=== PATIENT | female | born 1965 | race Caucasian/White ===

== ENCOUNTER 2022-07-04 13:28 | Inpatient (IN) | payer MEDICARE ==
[2022-07-04] MEDS ORDERED: Dextrose 50% Abboject 50 ML SYRINGE SLOW IVP PRN (17:16)
[2022-07-04] MEDS ORDERED: Senokot S 8.6-50 MG TAB PO PRN (17:17)
[2022-07-04] MEDS ORDERED: Acetaminophen 325 MG TAB PO PRN ×2 (17:17→20:15)
[2022-07-04] MEDS ORDERED: Ondansetron ODT 4 MG TAB SL PRN (17:17)
[2022-07-04] MEDS ORDERED: Bisacodyl 5 MG TAB PO PRN (17:17)
[2022-07-04] MEDS ORDERED: HumaLOG 300 UNITS/3 ML VIAL SC PRN (17:18)
[2022-07-04] MEDS ORDERED: Non-Formulary Item 1 EACH (Acetaminophen [Tylenol] 325 MG Capsule) PO PRN (19:58)
[2022-07-04 20:18] LABS: SARS-CoV-2 NAA Rapid Test Not Detected (NotDetected)
[2022-07-04] MEDS: Heparin 5,000 UNITS/ML VIAL SC SCH (20:37)
[2022-07-04] MEDS: Lantus 1000 UNITS/10 ML VIAL SC SCH (20:38)
[2022-07-04] MEDS: Famotidine 20 MG TAB PO SCH (20:40)
[2022-07-04] MEDS: Furosemide 40 MG TAB PO SCH (20:40)
[2022-07-05 06:19] LABS: ALT (SGPT) 18 U/L (8-55); AST (SGOT) 12 U/L (5-34); Albumin 3.6 g/dL (3.5-5.0); Alkaline Phosphatase 105 U/L (40-110); Anion Gap 17 mmol/L (10-20); BUN (Urea Nitrogen) 25 mg/dL (9.8-20.1); Bilirubin, Total 0.3 mg/dL (0.2-1.2); Calc. Creatinine Clearance 17 mL/min (70-130); Calcium 9.2 mg/dL (7.8-10.44); Carbon Dioxide 22 mmol/L (22-29); Chloride 97 mmol/L (98-107); Estimated GFR 8; Glucose 101 mg/dL (70-105); Potassium 4.8 mmol/L (3.5-5.1); Protein, Total 7.6 g/dL (6.0-8.3); Sodium 131 mmol/L (136-145)
[2022-07-05 06:35] LABS: Thyroid Stimulating Hormone 0.2975 uIU/mL (0.35-4.94)
[2022-07-05 07:16] LABS: #Basophils 0.1 thou/uL (0.0-0.2); #Eosinphils 0.5 thou/uL (0.0-0.7); #Lymphocytes 3.2 thou/uL (1.20-3.40); #Monocytes 0.5 thou/uL (0.11-0.59); #Neutrophils 6.1 thou/uL (1.40-6.50); %Basophils 1.4 % (0.0-1.0); %Eosinophils 5.1 % (0.0-10.0); %Lymphocytes 30.7 % (21.0-51.0); %Monocytes 5.1 % (0.0-10.0); %Neutrophils 57.7 % (42.0-75.0); Hemoglobin 9.4 g/dL (12.0-16.0); MDiff Complete? YES; Macrocytosis SLIGHT = 6-15 cells (100X) (0-5/hpf); Mean Corpuscular HGB CONC 32.1 g/dL (32.0-36.0); Mean Corpuscular Hemoglobin 32.8 pg (27.0-31.0); Mean Platelet Volume 6.1 fL (7.4-10.4); Platelet Count 311 10x3/uL (130-400); Platelet Morphology Comment Appears Adequate; RBC Distribution Width 20.1 % (11.5-14.5); Red Blood Cell (RBC) Count 2.86 mill/uL (4.20-5.40); White Blood Cell (WBC) Count 10.5 10x3/uL (4.8-10.8)
[2022-07-05] MEDS: Sevelamer Carbonate 800 MG TAB PO SCH ×3 (08:57→16:55)
[2022-07-05] MEDS: Aspirin 81 mg Enteric Coated Tablet PO SCH (08:58)
[2022-07-05] MEDS: NIFEdipine XL 30 MG TAB PO SCH (08:59)
[2022-07-05] MEDS: Calcitriol 0.25 MCG CAP PO SCH (09:00)
[2022-07-05] MEDS: Lantus 1000 UNITS/10 ML VIAL SC SCH ×2 (09:01→21:32)
[2022-07-05] MEDS: Heparin 5,000 UNITS/ML VIAL SC SCH ×3 (09:03→21:31)
[2022-07-05 11:31] LABS: Free T4 (Free Thyroxine) 0.63 ng/dL (0.70-1.48)
[2022-07-05] MEDS: ZINC PO SCH (13:39)
[2022-07-05] MEDS: VIT B COMPLX C PO SCH (13:39)
[2022-07-05] MEDS: FOLIC ACID PO SCH (13:39)
[2022-07-05] MEDS: HumaLOG 300 UNITS/3 ML VIAL SC PRN (17:42)
[2022-07-05] MEDS: Famotidine 20 MG TAB PO SCH (21:30)
[2022-07-05] MEDS: Furosemide 40 MG TAB PO SCH (21:31)
[2022-07-06] MEDS: Sevelamer Carbonate 800 MG TAB PO SCH ×3 (08:04→17:30)
[2022-07-06] MEDS: Lantus 1000 UNITS/10 ML VIAL SC SCH ×2 (08:05→20:46)
[2022-07-06] MEDS: Aspirin 81 mg Enteric Coated Tablet PO SCH (08:05)
[2022-07-06] MEDS: Calcitriol 0.25 MCG CAP PO SCH (08:05)
[2022-07-06] MEDS: Heparin 5,000 UNITS/ML VIAL SC SCH ×3 (09:56→20:49)
[2022-07-06] MEDS: ZINC PO SCH (10:23)
[2022-07-06] MEDS: VIT B COMPLX C PO SCH (10:23)
[2022-07-06] MEDS: FOLIC ACID PO SCH (10:23)
[2022-07-06] MEDS: [UNRECOGNIZED DRUG - OTHER] SC SCH (10:24)
[2022-07-06] MEDS: NIFEdipine XL 30 MG TAB PO SCH (10:24)
[2022-07-06] MEDS ORDERED: Acetaminophen 325 MG TAB PO PRN (16:15)
[2022-07-06] MEDS: Famotidine 20 MG TAB PO SCH (20:43)
[2022-07-06] MEDS: Furosemide 40 MG TAB PO SCH (20:44)
[2022-07-07] MEDS: Calcitriol 0.25 MCG CAP PO SCH (07:57)
[2022-07-07] MEDS: Sevelamer Carbonate 800 MG TAB PO SCH ×3 (07:57→17:02)
[2022-07-07] MEDS: Aspirin 81 mg Enteric Coated Tablet PO SCH (07:57)
[2022-07-07] MEDS: NIFEdipine XL 30 MG TAB PO SCH (07:57)
[2022-07-07] MEDS: VIT B COMPLX C PO SCH (07:58)
[2022-07-07] MEDS: FOLIC ACID PO SCH (07:58)
[2022-07-07] MEDS: ZINC PO SCH (07:58)
[2022-07-07] MEDS: Lantus 1000 UNITS/10 ML VIAL SC SCH ×2 (07:58→21:17)
[2022-07-07] MEDS: Heparin 5,000 UNITS/ML VIAL SC SCH ×3 (08:32→21:18)
[2022-07-07] MEDS: Furosemide 40 MG TAB PO SCH (21:16)
[2022-07-07] MEDS: Famotidine 20 MG TAB PO SCH (21:18)
[2022-07-08 06:35] VITALS: BMI 31.6
[2022-07-08] MEDS: Aspirin 81 mg Enteric Coated Tablet PO SCH (07:45)
[2022-07-08] MEDS: NIFEdipine XL 30 MG TAB PO SCH (07:45)
[2022-07-08] MEDS: Calcitriol 0.25 MCG CAP PO SCH (07:45)
[2022-07-08] MEDS: Sevelamer Carbonate 800 MG TAB PO SCH ×3 (07:45→16:55)
[2022-07-08] MEDS: Lantus 1000 UNITS/10 ML VIAL SC SCH ×2 (07:48→21:39)
[2022-07-08] MEDS: ZINC PO SCH (07:48)
[2022-07-08] MEDS: Heparin 5,000 UNITS/ML VIAL SC SCH ×3 (07:48→21:43)
[2022-07-08] MEDS: FOLIC ACID PO SCH (07:48)
[2022-07-08] MEDS: VIT B COMPLX C PO SCH (07:48)
[2022-07-08 12:01] LABS: #Basophils 0.2 thou/uL (0.0-0.2); #Eosinphils 0.7 thou/uL (0.0-0.7); #Lymphocytes 2.4 thou/uL (1.20-3.40); #Monocytes 0.6 thou/uL (0.11-0.59); #Neutrophils 4.5 thou/uL (1.40-6.50); %Basophils 2.1 % (0.0-1.0); %Eosinophils 8.7 % (0.0-10.0); %Lymphocytes 28.8 % (21.0-51.0); %Monocytes 6.8 % (0.0-10.0); %Neutrophils 53.7 % (42.0-75.0); Hemoglobin 10.1 g/dL (12.0-16.0); Mean Corpuscular HGB CONC 31.1 g/dL (32.0-36.0); Mean Corpuscular Hemoglobin 32.7 pg (27.0-31.0); Mean Platelet Volume 6.2 fL (7.4-10.4); Platelet Count 315 10x3/uL (130-400); RBC Distribution Width 20.4 % (11.5-14.5); Red Blood Cell (RBC) Count 3.08 mill/uL (4.20-5.40); White Blood Cell (WBC) Count 8.5 10x3/uL (4.8-10.8)
[2022-07-08 12:10] LABS: Prothrombin Time 13.2 sec (12.0-14.7)
[2022-07-08 12:17] LABS: ALT (SGPT) 18 U/L (8-55); AST (SGOT) 14 U/L (5-34); Albumin 3.9 g/dL (3.5-5.0); Alkaline Phosphatase 115 U/L (40-110); Anion Gap 18 mmol/L (10-20); BUN (Urea Nitrogen) 42 mg/dL (9.8-20.1); Bilirubin, Total 0.3 mg/dL (0.2-1.2); Calc. Creatinine Clearance 13 mL/min (70-130); Calcium 9.4 mg/dL (7.8-10.44); Carbon Dioxide 29 mmol/L (22-29); Chloride 97 mmol/L (98-107); Estimated GFR 6; Globulin 4.1 g/dL (2.4-3.5); Glucose 128 mg/dL (70-105); Potassium 4.5 mmol/L (3.5-5.1); Sodium 139 mmol/L (136-145)
[2022-07-08] MEDS: HumaLOG 300 UNITS/3 ML VIAL SC PRN (16:55)
[2022-07-08] MEDS: Famotidine 20 MG TAB PO SCH (21:38)
[2022-07-08] MEDS: Furosemide 40 MG TAB PO SCH (21:38)
[2022-07-09] MEDS: Sevelamer Carbonate 800 MG TAB PO SCH ×3 (08:25→17:23)
[2022-07-09] MEDS: Aspirin 81 mg Enteric Coated Tablet PO SCH (08:27)
[2022-07-09] MEDS: Heparin 5,000 UNITS/ML VIAL SC SCH ×3 (08:28→20:28)
[2022-07-09] MEDS: NIFEdipine XL 30 MG TAB PO SCH (08:30)
[2022-07-09] MEDS: Calcitriol 0.25 MCG CAP PO SCH (08:37)
[2022-07-09] MEDS: Lantus 1000 UNITS/10 ML VIAL SC SCH ×2 (08:42→20:27)
[2022-07-09] MEDS: [UNRECOGNIZED DRUG - OTHER] SC SCH (10:12)
[2022-07-09] MEDS: FOLIC ACID PO SCH (10:13)
[2022-07-09] MEDS: VIT B COMPLX C PO SCH (10:13)
[2022-07-09] MEDS: ZINC PO SCH (10:13)
[2022-07-09] MEDS ORDERED: diphenhydrAMINE 25 MG CAP PO SCH (17:00)
[2022-07-09] MEDS: Furosemide 40 MG TAB PO SCH (20:25)
[2022-07-09] MEDS: Famotidine 20 MG TAB PO SCH (20:25)
[2022-07-09] MEDS ORDERED: hydrOXYzine 25 MG TAB PO SCH ×2 (21:15→22:00)
[2022-07-10 06:09] LABS: #Basophils 0.2 thou/uL (0.0-0.2); #Eosinphils 0.7 thou/uL (0.0-0.7); #Lymphocytes 3.2 thou/uL (1.20-3.40); #Monocytes 0.5 thou/uL (0.11-0.59); %Basophils 2.1 % (0.0-1.0); %Eosinophils 8.1 % (0.0-10.0); %Lymphocytes 37.1 % (21.0-51.0); %Monocytes 6.2 % (0.0-10.0); %Neutrophils 46.5 % (42.0-75.0); Hemoglobin 9.3 g/dL (12.0-16.0); Mean Corpuscular HGB CONC 33.1 g/dL (32.0-36.0); Mean Corpuscular Hemoglobin 34.1 pg (27.0-31.0); Platelet Count 266 10x3/uL (130-400); Red Blood Cell (RBC) Count 2.74 mill/uL (4.20-5.40); White Blood Cell (WBC) Count 8.6 10x3/uL (4.8-10.8)
[2022-07-10 06:22] LABS: Anion Gap 16 mmol/L (10-20); BUN (Urea Nitrogen) 26 mg/dL (9.8-20.1); Calc. Creatinine Clearance 18 mL/min (70-130); Carbon Dioxide 28 mmol/L (22-29); Chloride 99 mmol/L (98-107); Estimated GFR 9; Glucose 109 mg/dL (70-105); Potassium 3.6 mmol/L (3.5-5.1); Sodium 139 mmol/L (136-145)
[2022-07-10] MEDS: Calcitriol 0.25 MCG CAP PO SCH (08:38)
[2022-07-10] MEDS: Sevelamer Carbonate 800 MG TAB PO SCH ×2 (08:38→12:51)
[2022-07-10 08:39] VITALS: BP 144/63; TEMP 98.3
[2022-07-10] MEDS: Aspirin 81 mg Enteric Coated Tablet PO SCH (08:39)
[2022-07-10] MEDS: NIFEdipine XL 30 MG TAB PO SCH (08:40)
[2022-07-10] MEDS: Heparin 5,000 UNITS/ML VIAL SC SCH ×3 (08:42→14:41)
[2022-07-10] MEDS: Lantus 1000 UNITS/10 ML VIAL SC SCH (08:42)
[2022-07-10] MEDS: ZINC PO SCH (08:49)
[2022-07-10] MEDS: VIT B COMPLX C PO SCH (08:49)
[2022-07-10] MEDS: FOLIC ACID PO SCH (08:49)
== END 2022-07-10 17:50 | disposition home health service (06) | DRG 604 ==
LOC: NAV ACUTE 16:25
PROVIDERS: ADMIT Family Medicine; ATTEND Family Medicine
DX: S91.302A Unspecified open wound, left foot, initial encounter (principal); N18.6 End stage renal disease; T25.322A Burn of third degree of left foot, initial encounter; I12.0 Hypertensive chronic kidney disease with stage 5 chronic kidney disease or end stage renal disease; R53.81 Other malaise; E11.22 Type 2 diabetes mellitus with diabetic chronic kidney disease; E11.40 Type 2 diabetes mellitus with diabetic neuropathy, unspecified; D63.1 Anemia in chronic kidney disease; E05.90 Thyrotoxicosis, unspecified without thyrotoxic crisis or storm; Z79.82 Long term (current) use of aspirin; Z99.2 Dependence on renal dialysis; Z79.899 Other long term (current) drug therapy; Z87.891 Personal history of nicotine dependence; Z83.3 Family history of diabetes mellitus; Z82.49 Family history of ischemic heart disease and other diseases of the circulatory system; Z80.8 Family history of malignant neoplasm of other organs or systems; Z98.890 Other specified postprocedural states; Z90.49 Acquired absence of other specified parts of digestive tract; Z89.432 Acquired absence of left foot; Z20.822 Contact with and (suspected) exposure to COVID-19
CPT/HCPCS: 36415; 36416; 80048; 80053; 84439; 84443; 85025; 85610; 86140; 97602; J1644; J1815; U0002